=== PATIENT | female | born 1995 | race Hispanic/Latino ===

== ENCOUNTER 2018-11-09 08:02 | Emergency (ER) | payer OTHER, SELFPAY ==
[2018-11-09] MEDS ORDERED: KETOROLAC 30 MG/ML INJ ONE (08:30)
[2018-11-09] MEDS ORDERED: NA CHLORIDE 0.9% 1,000 ML ONE (08:31)
[2018-11-09 08:47] LABS: Absolute Monocytes 0.4 K/uL (0.1-1.3); Absolute Neutrophil 3.3 K/uL (1.8-8.0); Basophils % 0.5 % (0-1.3); Eosinophils % 3.1 % (0-4.4); Hematocrit 40.4 % (36.0-45.0); Lymphocytes % 20.6 % (15.3-44.8); MPV 8.3 fL (7.6-11.3); Monocytes % 8.3 % (3.3-12.3); RBC Red Blood Cell Count 4.47 M/uL (3.86-4.86)
[2018-11-09 08:59] LABS: Urine Blood 2+ (NEG); Urine Glucose NEGATIVE (NEG); Urine Protein NEGATIVE (NEG); Urine pH 5.5 (5.0-7.0)
[2018-11-09 09:01] LABS: ALT/SGPT 86 U/L (12-78); AST/SGOT 45 U/L (15-37); Albumin 3.8 g/dL (3.4-5.0); Alkaline Phosphatase 84 U/L (45-117); BUN Blood Urea Nitrogen 8 mg/dL (7-18); Bicarbonate 27 mmol/L (21-32); Bilirubin Direct 0.1 mg/dL (0-0.2); Bilirubin Total 0.4 mg/dL (0.2-1.0); Glucose Level 94 mg/dL (74-106); Lipase 125 U/L (73-393); Potassium 3.4 mmol/L (3.5-5.1); Protein, Total 8.1 g/dL (6.4-8.2); Sodium Level 140 mmol/L (136-145)
[2018-11-09 09:04] LABS: Urine Bacteria <20 /HPF (<20); Urine RBC <5 /HPF (NONE SEEN)
[2018-11-09 09:05] LABS: Urine Culture Reflex Order NOT NEEDED
--- NOTE | 2018-11-09 09:24 | RAD REPORT ---
EXAM DESCRIPTION: US - Transvaginal Study Probe - 11/09/2018 9:16 am CLINICAL HISTORY: right adnexal pain Pelvic pain. COMPARISON: TRANSVAGINAL STUDY PROBE dated 02/25/2012 FINDINGS: The uterus is normal in size, shape and echotexture. The uterus measures 8.7 x 4.1 x 3.6 c m. The endometrial stripe measures 10 mm, normal. Both ovaries are normal in size, shape and echotexture. The right ovary measures 2.0 x 1.9 x 1.7 cm. The left ovary measures 2.9 x 1.6 x 1.4 cm. No ovarian or parovarian lesions. No adnexal masses. Normal Doppler blood flow was demonstrated to both ovaries. No significant pelvic ascites. IMPRESSION: Unremarkable study.
[2018-11-09] MEDS ORDERED: ONDANSETRON 4 MG/2 ML VIAL ONE (09:53)
[2018-11-09] MEDS ORDERED: MORPHINE 4 MG/ML SYR ONE (09:53)
--- NOTE | 2018-11-09 11:41 | RAD REPORT ---
EXAM DESCRIPTION: CTAbdomen Pelvis W Contrast - 11/09/2018 11:34 am CLINICAL HISTORY: Abdominal pain. RLQ abdomen pain COMPARISON: Transvaginal Study Probe dated 11/09/2018; TRANSVAGINAL STUDY PROBE dated 02/25/2012 TECHNIQUE: Biphasic CT imaging of the abdomen and pelvis was performed with 100 ml non-ionic IV cont rast. All CT scans are performed using dose optimization technique as appropriate and may include automated exposure control or mA/KV adjustment according to patient size. FINDINGS: The lung bases are clear.Cholecystectomy clips. The liver, spleen, pancreas, adrenal glands and kidneys are within normal limits. No bowel obstruction, free air, free fluid or abscess. The appendix is normal. No evidence of signi ficant lymphadenopathy. No suspicious bony findings. IMPRESSION: No acute intra-abdominal or pelvic finding.
--- NOTE | 2018-11-09 12:02 | ER ---
Nurse's Notes [facility] Name: Mary Aaron Age: 23 yrs Sex: Female : 1995 Arrival Date: 11/09/2018 Time: 08:03 Bed 6 Private MD: Diagnosis: Lower abdominal pain, unspecified Presentation: 11/09 08:04 Transition of care: patient was not received from another setting of care. Risk ss Assessment: Do you want to hurt yourself or someone else? Patient reports no desire to harm self or others. Care prior to arrival: None. 08:04 Method Of Arrival: Ambulatory ss 08:04 Acuity: KAMALA 3 ss 08:11 Presenting complaint: Patient states: "I've had two ectopic pregnancies, so I've had ss both of my fallopian tubes removed, and for the past few months I've had very painful periods, and this morning this is really bad like when I had my last ectopic .". Onset of symptoms was November 09, 2018. Initial Sepsis Screen: Does the patient meet any 2 criteria? No. Patient's initial sepsis screen is negative. Does the patient have a suspected source of infection? No. Patient's initial sepsis screen is negative. 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 - Social history:: Smoking status: Patient/guardian denies using tobacco. - Ebola Screening: : Patient denies exposure to infectious person Patient denies travel to an Ebola-affected area in the 21 days before illness onset. Screenin:38 Abuse screen: Denies threats or abuse. Nutritional screening: No deficits noted. tw2 Tuberculosis screening: No symptoms or risk factors identified. Fall Risk None identified. Assessment: 08:35 General: Appears in no apparent distress. uncomfortable, Behavior is calm, cooperative, jl7 appropriate for age. Pain: Complains of pain in right lower quadrant Pain does not radiate. Pain currently is 8 out of 10 on a pain scale. Quality of pain is described as sharp, stabbing, throbbing, Pain began years ago. Is intermittent. Neuro: Level of Consciousness is awake, alert, obeys commands, Oriented to person, place, time, situation. Cardiovascular: Patient's skin is warm and dry. Respiratory: Airway is patent Respiratory effort is even, unlabored, Respiratory pattern is regular, symmetrical. GI: Bowel sounds present X 4 quads. Abd is soft and non tender X 4 quads. : No signs and/or symptoms were reported regarding the genitourinary system. EENT: No signs and/or symptoms were reported regarding the EENT system. Derm: Skin is pink, warm \\T\\ dry. Musculoskeletal: No signs and/or symptoms reported regarding the musculoskeletal system. 09:15 Reassessment: Pt reports "It feels a little better." Pain rated 7/10 at this time. jl7 09:40 Reassessment: Pt c/o nausea and pain rated 7/10, ERP notified, see MAR for orders. jl7 10:00 Reassessment: Patient appears in no apparent distress at this time. Patient and/or jl7 family updated on plan of care and expected duration. Pain level reassessed. Patient is alert, oriented x 3, equal unlabored respirations, skin warm/dry/pink. Patient states symptoms have improved. 11:30 Reassessment: Patient appears in no apparent distress at this time. Patient and/or jl7 family updated on plan of care and expected duration. Pain level reassessed. Patient is alert, oriented x 3, equal unlabored respirations, skin warm/dry/pink. Vital Signs: 08:03 Resp 15; Temp 97.8(TE); Weight 68.04 kg (R); Height 5 ft. 3 in. (160.02 cm); Pain 8/10; ss 08:11 BP 114 / 91; Pulse 85; Pulse Ox 99% on R/A; ss 09:11 BP 117 / 75; Pulse 65; Resp 17; Pulse Ox 100% on R/A; tw2 10:10 BP 93 / 62; Pulse 54; Resp 17; Pulse Ox 100% on R/A; tw2 11:10 BP 99 / 60; Pulse 60; Resp 17; Pulse Ox 100% on R/A; tw2 12:00 BP 101 / 62; Pulse 65; Resp 16 S; Pulse Ox 100% on R/A; jl7 08:03 Body Mass Index 26.57 (68.04 kg, 160.02 cm) ED Course: 08:03 Patient arrived in ED. ss 08:03 Arm band placed on left wrist. ss 08:04 Triage completed. ss 08:05 Axel Ramon, QIAN is Primary Nurse. jl7 08:06 Karlo Lambert PA is PHCP. cp 08:06 Eva Dowell MD is Attending Physician. cp 08:20 Patient has correct armband on for positive identification. Placed in gown. Bed in low jl7 position. Call light in reach. Side rails up X 1. personnel monitor on. Pulse ox on. NIBP on. 08:30 Initial lab(s) drawn, by me, sent to lab. Inserted saline lock: 20 gauge in left jl7 antecubital area, using aseptic technique. Blood collected. 09:21 Transvaginal Study Probe In Process Unspecified. EDMS 11:35 CT Abd/Pelvis - W/Contrast: give oral contrast In Process Unspecified. EDMS 12:01 Delfino Cortes MD is Referral Physician. cp 12:25 No provider procedures requiring assistance completed. IV discontinued, intact, jl7 bleeding controlled, No redness/swelling at site. Pressure dressing applied. Administered Medications: 08:30 Drug: NS 0.9% 1000 ml Route: IV; Rate: 1 bolus; Site: left antecubital; jl7 09:45 Follow up: IV Status: Completed infusion jl7 11:06 Follow up: Response: No adverse reaction; IV Status: Completed infusion; IV Intake: tw2 1000ml 08:31 Drug: TORadol 30 mg Route: IVP; Site: left antecubital; jl7 09:00 Follow up: Response: No adverse reaction; Pain is decreased jl7 09:46 Drug: Zofran 4 mg Route: IVP; Site: left antecubital; jl7 10:30 Follow up: Response: No adverse reaction; Nausea is decreased jl7 09:47 Drug: morphine 2 mg Route: IVP; Site: left antecubital; jl7 10:30 Follow up: Response: No adverse reaction; Pain is decreased jl7 12:05 Drug: traMADol 50 mg Route: PO; jl7 12:21 Follow up: Response: Medication administered at discharge. jl7 Intake: 11:06 IV: 1000ml; Total: 1000ml. tw2 Outcome: 12:01 Discharge ordered by . joey 12:23 Discharged to home ambulatory. jl7 12:23 Condition: stable 12:23 Discharge instructions given to patient, family, Instructed on discharge instructions, follow up and referral plans. medication usage, Demonstrated understanding of instructions, follow-up care, medications, Prescriptions given X 3. 12:26 Patient left the ED. jl7 Signatures: Dispatcher [employer] EDWV Marti Best RN RN Karlo Burk, LUX PA Bernie Valadez RN RN tw2 Axel Ramon RN RN jl7 Corrections: (The following items were deleted from the chart) 08:11 08:04 PMHx: None; [facility]
--- NOTE | 2018-11-09 12:03 | EDPHYS ---
Physician Documentation [facility] Name: Mary Aaron Age: 23 yrs Sex: Female : 1995 Arrival Date: 11/09/2018 Time: 08:03 Bed 6 Private MD: ED Physician Eva Dowell HPI: 11/09 08:20 This 23 yrs old Female presents to ER via Ambulatory with complaints of cp Abdominal Pain. 08:20 The patient presents with abdominal pain right lower quadrant. Onset: The cp symptoms/episode began/occurred suddenly, this morning. The symptoms do not radiate. 08:20 Associated signs and symptoms: Pertinent positives: vaginal bleeding, currently on cp menses, Pertinent negatives: blood in stools, chest pain, constipation, diarrhea, dysuria, fever. The symptoms are described as constant. 08:20 The patient has experienced similar episodes in the past, but today's symptoms are cp worse, more painful. 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 - Social history:: Smoking status: Patient/guardian denies using tobacco. - Ebola Screening: : Patient denies exposure to infectious person Patient denies travel to an Ebola-affected area in the 21 days before illness onset. ROS: 08:22 Eyes: Negative for injury, pain, redness, and discharge. cp 08:22 Constitutional: Negative for body aches, chills, fever, poor PO intake. 08:22 ENT: Negative for drainage from ear(s), ear pain, sore throat, difficulty swallowing, difficulty handling secretions. 08:22 Cardiovascular: Negative for chest pain, edema, palpitations. 08:22 Respiratory: Negative for cough, shortness of breath, wheezing. 08:22 Abdomen/GI: Positive for abdominal pain, of the right lower quadrant, Negative for vomiting, diarrhea, constipation, black/tarry stool, rectal bleeding. 08:22 Back: Negative for pain at rest, pain with movement, radiated pain. 08:22 : Positive for vaginal bleeding, Negative for urinary symptoms. 08:22 Skin: Negative for cellulitis, rash. 08:22 All other systems are negative. Exam: 08:30 Head/Face: Normocephalic, atraumatic. cp 08:30 Constitutional: The patient appears in no acute distress, alert, awake, non-toxic, well developed, well nourished. 08:30 Eyes: Periorbital structures: appear normal, Conjunctiva: normal, no exudate, no injection, Sclera: no appreciated abnormality, Lids and lashes: appear normal, bilaterally. 08:30 ENT: External ear(s): are unremarkable, Nose: is normal, Mouth: Lips: moist, Oral mucosa: pink and intact, moist, Posterior pharynx: is normal, airway is patent, no erythema, no exudate. 08:30 Chest/axilla: Inspection: normal, Palpation: is normal, no crepitus, no tenderness. 08:30 Cardiovascular: Rate: normal, Rhythm: regular. 08:30 Respiratory: the patient does not display signs of respiratory distress, Respirations: normal, no use of accessory muscles, no retractions, no splinting, no tachypnea, labored breathing, is not present, Breath sounds: are clear throughout, no decreased breath sounds, no stridor, no wheezing. 08:30 Abdomen/GI: Inspection: abdomen appears normal, Bowel sounds: active, all quadrants, Palpation: soft, in all quadrants, moderate abdominal tenderness, in the right lower quadrant, rebound tenderness, is not appreciated, voluntary guarding, is elicited in the right lower quadrant. 08:30 Back: pain, is absent, ROM is normal. 08:30 Skin: cellulitis, is not appreciated, no rash present. Vital Signs: 08:03 Resp 15; Temp 97.8(TE); Weight 68.04 kg (R); Height 5 ft. 3 in. (160.02 cm); Pain 8/10; ss 08:11 BP 114 / 91; Pulse 85; Pulse Ox 99% on R/A; ss 09:11 BP 117 / 75; Pulse 65; Resp 17; Pulse Ox 100% on R/A; tw2 10:10 BP 93 / 62; Pulse 54; Resp 17; Pulse Ox 100% on R/A; tw2 11:10 BP 99 / 60; Pulse 60; Resp 17; Pulse Ox 100% on R/A; tw2 12:00 BP 101 / 62; Pulse 65; Resp 16 S; Pulse Ox 100% on R/A; jl7 08:03 Body Mass Index 26.57 (68.04 kg, 160.02 cm) ss MDM: 08:06 Patient medically screened. cp 09:00 Differential diagnosis: appendicitis, Ectopic , Endometriosis, Ovarian cp Torsion, Peritonitis, Pelvic Inflammatory Disease, Pyelonephritis, Ureterolithiasis, urinary tract infection. 12:00 Data reviewed: vital signs, nurses notes, lab test result(s), radiologic studies, CT cp scan, ultrasound. 12:00 Special discussion: Based on the patient's Hx, exam, and Dx evaluation, there is no cp indication for emergent surgery or inpatient Tx. It is understood by the patient/guardian that if the Sx's persist or worsen they need to return immediately for re-evaluation. 12:00 Counseling: I had a detailed discussion with the patient and/or guardian regarding: the cp historical points, exam findings, and any diagnostic results supporting the discharge/admit diagnosis, lab results, radiology results, the need for outpatient follow up, an OB/Gyne specialist, to return to the emergency department if symptoms worsen or persist or if there are any questions or concerns that arise at home. 12:00 Response to treatment: the patient's symptoms have markedly improved after treatment, cp and as a result, I will discharge patient. 11/09 08:19 Order name: Basic Metabolic Panel; Complete Time: 09:15 cp 11/09 11:56 Interpretation: Normal except: K 3.4. cp 11/09 08:19 Order name: CBC with Diff; Complete Time: 08:57 cp 11/09 08:57 Interpretation: Within normal limits. cp 11/09 08:19 Order name: Creatinine for Radiology; Complete Time: 09:15 cp 11/09 08:19 Order name: Hepatic Function; Complete Time: 09:15 cp 11/09 08:19 Order name: Lipase; Complete Time: 09:15 cp 11/09 08:19 Order name: Urine Microscopic Only; Complete Time: 09:15 cp 11/09 08:23 Order name: Urine Dipstick--Ancillary (enter results); Complete Time: 09:15 bd 11/09 08:23 Order name: Urine --Ancillary (enter results); Complete Time: 09:15 bd 11/09 09:21 Order name: Transvaginal Study Probe; Complete Time: 11:49 EDMS 11/09 11:50 Interpretation: Report reviewed. 11/09 09:29 Order name: CT Abd/Pelvis - W/Contrast: give oral contrast; Complete Time: 11:49 cp 11/09 08:19 Order name: IV Saline Lock; Complete Time: 08:30 cp 11/09 08:19 Order name: Labs collected and sent; Complete Time: 08:30 cp 11/09 08:19 Order name: Urine Dipstick-Ancillary (obtain specimen); Complete Time: 08:30 cp 11/09 08:19 Order name: Urine Test (obtain specimen); Complete Time: 08:30 cp Administered Medications: 08:30 Drug: NS 0.9% 1000 ml Route: IV; Rate: 1 bolus; Site: left antecubital; jl7 09:45 Follow up: IV Status: Completed infusion jl7 11:06 Follow up: Response: No adverse reaction; IV Status: Completed infusion; IV Intake: tw2 1000ml 08:31 Drug: TORadol 30 mg Route: IVP; Site: left antecubital; jl7 09:00 Follow up: Response: No adverse reaction; Pain is decreased jl7 09:46 Drug: Zofran 4 mg Route: IVP; Site: left antecubital; jl7 10:30 Follow up: Response: No adverse reaction; Nausea is decreased jl7 09:47 Drug: morphine 2 mg Route: IVP; Site: left antecubital; jl7 10:30 Follow up: Response: No adverse reaction; Pain is decreased jl7 12:05 Drug: traMADol 50 mg Route: PO; jl7 12:21 Follow up: Response: Medication administered at discharge. jl7 Disposition: 18:26 Co-signature as Attending Physician, Eva Dowell MD. ma2 Disposition: 11/09/18 12:01 Discharged to Home. Impression: Lower abdominal pain, unspecified. - Condition is Stable. - Discharge Instructions: Abdominal Pain, Adult. - Prescriptions for Naprosyn 500 mg Oral Tablet - take 1 tablet by ORAL route 2 times per day take with food; 20 tablet. Zofran 4 mg Oral Tablet - take 1 tablet by ORAL route every 12 hours As needed; 20 tablet. Tramadol 50 mg Oral Tablet - take 1 tablet by ORAL route every 8 hours as needed; 15 tablet. - Family Work Release, Medication Reconciliation Form, Thank You Letter, Antibiotic Education, Prescription Opioid Use form. - Follow up: Delfino Cortes MD; When: 1 - 2 days; Reason: Recheck today's complaints. - Problem is new. - Symptoms have improved. Signatures: Dispatcher [employer] EDCA Marti Best RN RN ss Karlo Lambert PA PA cp Axel Ramon RN RN jl7 Eva Dowell MD MD ma2 Bernie Santoro RN tw2 Corrections: (The following items were deleted from the chart) 08:11 08:04 PMHx: None; [facility] 09:20 08:20 Pelvis Complete+US.RAD.BRZ ordered. [facility] 12:26 12:01 11/09/2018 12:01 Discharged to Home. Impression: Lower abdominal pain, jl7 unspecified. Condition is Stable. Forms are Medication Reconciliation Form, Thank You Letter, Antibiotic Education, Prescription Opioid Use. Follow up: Delfino Cortes; When: 1 - 2 days; Reason: Recheck today's complaints. Problem is new. Symptoms have improved. cp
[2018-11-09] MEDS ORDERED: TRAMADOL HCL 50 MG TAB ONE (12:09)
[2018-11-09 12:37] VITALS: TEMP 97.8
[2018-11-09 12:40] VITALS: O2SAT 100
[2018-11-09 12:42] VITALS: BP 99/60
== END 2018-11-09 12:26 | disposition home or self-care (01) ==
LOC: ER 08:02
DX: R10.31 Right lower quadrant pain (principal)
CPT/HCPCS: 36415; 74177; 76830; 80048; 80076; 81003; 81015; 81025; 83690; 85025; 96361; 96374; 96375; 99284; J2405; J7030; Q9967

== ENCOUNTER 2019-02-21 10:23 | Emergency (ER) | payer SELFPAY ==
--- NOTE | 2019-02-21 12:23 | ER ---
Nurse's Notes [facility] Name: Mary Aaron Age: 23 yrs Sex: Female : 1995 Arrival Date: 02/21/2019 Time: 10:24 Bed 16 Private MD: Diagnosis: Pain in right hand Presentation: 02/21 10:52 Presenting complaint: Patient states: left 2nd digit sharp shooting pain and swelling sv started 3-4 days ago after walking her dog and the leash pulled. Transition of care: patient was not received from another setting of care. Onset of symptoms was February 17, 2019. Initial Sepsis Screen: Does the patient meet any 2 criteria? No. Patient's initial sepsis screen is negative. Does the patient have a suspected source of infection? No. Patient's initial sepsis screen is negative. Care prior to arrival: None. 10:52 Method Of Arrival: Ambulatory sv 10:52 Acuity: KAMALA 3 sv 11:49 Risk Assessment: Do you want to hurt yourself or someone else? Patient reports no ph desire to harm self or others. 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 - Social history:: Smoking status: Patient/guardian denies using tobacco. - Ebola Screening: : No symptoms or risks identified at this time. Screenin:48 Abuse screen: Denies threats or abuse. Denies injuries from another. Nutritional ph screening: No deficits noted. Tuberculosis screening: No symptoms or risk factors identified. Fall Risk None identified. Assessment: 11:47 General: Appears in no apparent distress. comfortable, well groomed, Behavior is calm, ph cooperative, appropriate for age. Pain: Complains of pain in right hand Pain radiates to dorsal aspect of right forearm. Neuro: Level of Consciousness is awake, alert, obeys commands, Oriented to person, place, time, situation. Cardiovascular: Capillary refill < 3 seconds in bilateral fingers Patient's skin is warm and dry. Respiratory: Airway is patent Respiratory effort is even, unlabored. Derm: Skin is intact, is healthy with good turgor, Skin is pink, warm \\T\\ dry. Vital Signs: 10:53 BP 129 / 85; Pulse 79; Resp 16; Temp 97.9; Pulse Ox 100% ; Weight 77.11 kg; Height 5 sv ft. 4 in. (162.56 cm); Pain 2/10; 11:55 BP 116 / 84; Pulse 80; Resp 16; Temp 98.0(O); Pulse Ox 100% ; mh5 13:01 BP 118 / 78; Pulse 76; Resp 18; Temp 97.4; Pulse Ox 99% ; ph 10:53 Body Mass Index 29.18 (77.11 kg, 162.56 cm) sv ED Course: 10:24 Patient arrived in ED. as 10:53 Triage completed. sv 10:54 Arm band placed on Patient placed in waiting room, Patient notified of wait time. sv 11:07 Little Alvarze FNP-C is PHCP. kb 11:07 Hardy Iyer MD is Attending Physician. kb 11:19 Emi Lau, RN is Primary Nurse. ph 11:49 Patient has correct armband on for positive identification. Bed in low position. Door ph closed. Noise minimized. 11:58 X-ray completed. Portable x-ray completed in exam room. Patient tolerated procedure mh1 well. 12:00 Hand Right 2 View XRAY In Process Unspecified. EDMS 13:00 No provider procedures requiring assistance completed. Patient did not have IV access ph during this emergency room visit. Administered Medications: No medications were administered Outcome: 12:23 Discharge ordered by . kb 13:00 Discharged to home ambulatory, with significant other. ph 13:00 Condition: good 13:00 Discharge instructions given to patient, Instructed on discharge instructions, follow up and referral plans. Demonstrated understanding of instructions, follow-up care. 13:01 Patient left the ED. ph Signatures: Dispatcher [employer] EDMS Little Alvarez FNP-C FNP-Ckb Verde, Stephanie, RN RN Liza Sher 1 Merline Tilley Patricia, RN RN Sasha Tilley [facility]
--- NOTE | 2019-02-21 12:23 | EDPHYS ---
Physician Documentation [facility] Name: Mary Aaron Age: 23 yrs Sex: Female : 1995 Arrival Date: 02/21/2019 Time: 10:24 Bed 16 Private MD: ED Physician Hardy Iyer HPI: 02/21 11:38 This 23 yrs old Female presents to ER via Ambulatory with complaints of Hand kb Pain. 11:38 The patient or guardian reports injury, pain, swelling. The complaints affect the kb dorsum of right hand. Context: The problem was sustained outdoors, resulted from leash pulled by dog. Onset: The symptoms/episode began/occurred 3 day(s) ago. Modifying factors: The symptoms are alleviated by nothing, the symptoms are aggravated by nothing. Associated signs and symptoms: The patient has no apparent associated signs or symptoms. Severity of symptoms: At their worst the symptoms were moderate, in the emergency department the symptoms are unchanged. 11:41 The patient has not experienced similar symptoms in the past. The patient has not kb recently seen a physician. 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 - Social history:: Smoking status: Patient/guardian denies using tobacco. - Ebola Screening: : No symptoms or risks identified at this time. ROS: 11:41 Constitutional: Negative for fever, chills, and weight loss, Cardiovascular: Negative kb for chest pain, palpitations, and edema, Respiratory: Negative for shortness of breath, cough, wheezing, and pleuritic chest pain, Abdomen/GI: Negative for abdominal pain, nausea, vomiting, diarrhea, and constipation, : Negative for injury, bleeding, discharge, and swelling, Skin: Negative for injury, rash, and discoloration, Neuro: Negative for headache, weakness, numbness, tingling, and seizure. 11:41 MS/extremity: Positive for pain, swelling, of the dorsum of right hand. Exam: 11:42 Constitutional: This is a well developed, well nourished patient who is awake, alert, kb and in no acute distress. Head/Face: Normocephalic, atraumatic. Chest/axilla: Normal chest wall appearance and motion. Nontender with no deformity. No lesions are appreciated. Cardiovascular: Regular rate and rhythm with a normal S1 and S2. No gallops, murmurs, or rubs. Normal PMI, no JVD. No pulse deficits. Respiratory: Lungs have equal breath sounds bilaterally, clear to auscultation and percussion. No rales, rhonchi or wheezes noted. No increased work of breathing, no retractions or nasal flaring. Abdomen/GI: Soft, non-tender, with normal bowel sounds. No distension or tympany. No guarding or rebound. No evidence of tenderness throughout. Skin: Warm, dry with normal turgor. Normal color with no rashes, no lesions, and no evidence of cellulitis. Neuro: Awake and alert, GCS 15, oriented to person, place, time, and situation. Cranial nerves II-XII grossly intact. Motor strength 5/5 in all extremities. Sensory grossly intact. Cerebellar exam normal. Normal gait. 11:42 Musculoskeletal/extremity: Extremities: grossly normal except: noted in the dorsum of right hand: pain, swelling, ROM: intact in all extremities, Circulation is intact in all extremities. Sensation intact. Vital Signs: 10:53 BP 129 / 85; Pulse 79; Resp 16; Temp 97.9; Pulse Ox 100% ; Weight 77.11 kg; Height 5 sv ft. 4 in. (162.56 cm); Pain 2/10; 11:55 BP 116 / 84; Pulse 80; Resp 16; Temp 98.0(O); Pulse Ox 100% ; mh5 13:01 BP 118 / 78; Pulse 76; Resp 18; Temp 97.4; Pulse Ox 99% ; ph 10:53 Body Mass Index 29.18 (77.11 kg, 162.56 cm) sv MDM: 11:07 Patient medically screened. kb 11:42 Data reviewed: vital signs, nurses notes. Data interpreted: Pulse oximetry: on room air kb is 100 %. Interpretation: normal. 12:21 Counseling: I had a detailed discussion with the patient and/or guardian regarding: the kb historical points, exam findings, and any diagnostic results supporting the discharge/admit diagnosis, radiology results, the need for outpatient follow up, a family practitioner, to return to the emergency department if symptoms worsen or persist or if there are any questions or concerns that arise at home. 12:22 Test interpretation: by ED physician or midlevel provider: plain radiologic studies, kb negative for acute finding. 02/21 11:11 Order name: Hand Right 2 View XRAY; Complete Time: 12:44 kb Administered Medications: No medications were administered Disposition: 02/21/19 12:23 Discharged to Home. Impression: Pain in right hand. - Condition is Stable. - Discharge Instructions: Hand Pain. - Family Work Release, Medication Reconciliation Form, Thank You Letter, Antibiotic Education, Prescription Opioid Use form. - Follow up: Emergency Department; When: As needed; Reason: Worsening of condition. Follow up: Private Physician; When: 2 - 3 days; Reason: Recheck today's complaints, Continuance of care, Re-evaluation by your physician. Addendum: 02/23/2019 07:04 Co-signature as Attending Physician, Hardy Iyer MD. r n Signatures: Dispatcher [employer] EDLittle Mcnair, REYNALDO-C FRONT END DRIVER-Leonor Buckley RN RN Hardy Garcia MD MD rn LauEmi RN RN ph Corrections: (The following items were deleted from the chart) 02/21 13:01 12:23 02/21/2019 12:23 Discharged to Home. Impression: Pain in right hand. Condition is ph Stable. Forms are Medication Reconciliation Form, Thank You Letter, Antibiotic Education, Prescription Opioid Use. Follow up: Emergency Department; When: As needed; Reason: Worsening of condition. Follow up: Private Physician; When: 2 - 3 days; Reason: Recheck today's complaints, Continuance of care, Re-evaluation by your physician. kb
--- NOTE | 2019-02-21 12:31 | RAD REPORT ---
EXAM DESCRIPTION: RAD - Hand Right 2 View - 02/21/2019 11:59 am CLINICAL HISTORY: PAIN COMPARISON: No comparisons FINDINGS: No fracture or dislocation is seen. Multiple surgical clips are seen along the dorsum of t he hand.
[2019-02-21 16:33] VITALS: BP 118/78; TEMP 97.4; O2SAT 99
== END 2019-02-21 13:01 | disposition home or self-care (01) ==
LOC: ER 10:23
DX: M79.641 Pain in right hand (principal)
CPT/HCPCS: 99283

== ENCOUNTER 2019-12-17 21:04 | Emergency (ER) | payer SELFPAY ==
--- OUTSIDE RECORDS SUMMARY | 2019-12-17 21:07 | XMS REPORT ---
:1995 [facility] Address [address] [place] [address] Dr. Willis [address] [place] [address] Care Team Providers Name Role Phone Unavailable Unavailable Unavailable Problems This patient has no known problems. Allergies, Adverse Reactions, Alerts This patient has no known allergies or adverse reactions. Medications This patient has no known medications.
--- OUTSIDE RECORDS SUMMARY | 2019-12-17 21:07 | XMS REPORT | Summary of Care ---
:1995 Author Organization [facility] Address [address] [place] [id number] Care Team Providers Name Role Phone Pcp, Patient Does Not Have A Primary Care Provider Encounter Details Date Type Department Care Team Description 04/19/2019 Patient Secure Msg [facility] Messages Doctor Unassigned, [address] [place] [address] [place] [address] [place] [address] [place] [address] Allergies No Known Allergiesdocumented as of this encounter (statuses as of 05/21/2019) Medications No known medicationsdocumented as of this encounter (statuses as of 05/21/2019) Active Problems Problem Noted Date Well woman exam 04/18/2019 Need for HPV vaccination 04/18/2019 Obesity (BMI 30-39.9) 04/18/2019 Pain pelvic 04/18/2019 documented as of this encounter (statuses as of 05/21/2019) Immunizations Name Administration Dates Next Due HPV9 04/18/2019 documented as of this encounter Social History Tobacco Use Types Packs/Day Years Used Date Never Smoker Smokeless Tobacco: Never Used Alcohol Use Drinks/Week oz/Week Comments Not Currently Sex Assigned at Date Recorded Not on file Job Start Date Occupation Industry Not on file Not on file Not on file Travel History Travel Start Travel End No recent travel history available. documented as of this encounter Last Filed Vital Signs Not on filedocumented in this encounter Plan of Treatment Date Type Specialty Care Team Description 06/20/2019 Nurse Visit OB Satellites Visit, [facility] Nurse Health Maintenance Due Date Last Done Comments VARICELLA VACCINES (1 of 2 - 13+ 2007 2-dose series) DTaP,Tdap,and Td Vaccines (1 - 2013 Tdap) HPV VACCINES (2 - Female 3-dose 05/16/2019 04/18/2019 series) INFLUENZA VACCINE 06/12/2019 CHLAMYDIA SCREENING 04/18/2020 04/18/2019 PAP SMEAR 04/18/2022 04/18/2019 PNEUMOCOCCAL 0-64 YEARS COMBINED Aged Out No longer eligible based on SERIES patient's age to complete this topic documented as of this encounter Results Not on filedocumented in this encounter Insurance Payer Benefit Plan Subscriber ID Effective Phone Address Type / Group Dates [facility] xxxxxxxxx 2019-Peter [phone] Medicaid WOMEN nt [address] [place] [address] documented as of this encounter
--- NOTE | 2019-12-17 22:19 | ER ---
Nurse's Notes [facility] Name: Mary Aaron Age: 24 yrs Sex: Female : 1995 Arrival Date: 12/17/2019 Time: 21:09 Bed 13 Private MD: Diagnosis: Chronic nasopharyngitis;Gastro-esophageal reflux disease Presentation: 12/16 21:11 Chief complaint: Patient states: Sick last month with nasal congestion. Has had sore ll1 throat for 3 weeks. Bilateral ear pain today. No fever this week. Coronavirus screen: The patient has NOT traveled to a country currently being monitored by the [facility] within the last 14 days. Ebola Screen: Patient denies travel to an Ebola-affected area in the 21 days before illness onset. Initial Sepsis Screen: Does the patient meet any 2 criteria? No. Patient's initial sepsis screen is negative. Does the patient have a suspected source of infection? No. Patient's initial sepsis screen is negative. Risk Assessment: Do you want to hurt yourself or someone else? Patient reports no desire to harm self or others. 21:11 Method Of Arrival: Ambulatory 1 21:11 Acuity: KAMALA 4 ll1 21:32 Onset of symptoms is unknown. 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 - Social history:: Patient/guardian denies using alcohol, street drugs, tobacco products, Smoking status: Patient/guardian denies using. Screenin:32 Abuse screen: Denies threats or abuse. Denies injuries from another. Nutritional screening: No deficits noted. Tuberculosis screening: No symptoms or risk factors identified. Fall Risk None identified. Assessment: 21:31 General: Appears in no apparent distress. Behavior is calm, cooperative, appropriate for age. Pain: Complains of pain in ear pain and sore throat. Neuro: Level of Consciousness is awake, alert, obeys commands, Oriented to person, place, time, situation, Appropriate for age. Cardiovascular: Heart tones S1 S2. Respiratory: Airway is patent Respiratory effort is even, unlabored, Respiratory pattern is regular, symmetrical, Breath sounds are clear bilaterally. GI: Abdomen is flat, non-distended. : No signs and/or symptoms were reported regarding the genitourinary system. EENT: Throat is pink. Derm: Skin is intact, is healthy with good turgor, Skin is pink, warm \\T\\ dry. normal. Musculoskeletal: Circulation, motion, and sensation intact. 22:40 Reassessment: Patient appears in no apparent distress at this time. No changes from previously documented assessment. Patient and/or family updated on plan of care and expected duration. Pain level reassessed. Patient is alert, oriented x 3, equal unlabored respirations, skin warm/dry/pink. Vital Signs: 21:11 BP 124 / 94; Pulse 84; Resp 18; Temp 97.4; Pulse Ox 100% ; Weight 77.11 kg; Height 5 ll1 ft. 4 in. (162.56 cm); Pain 6/10; 21:33 BP 116 / 84; Pulse 89; Resp 18; Pulse Ox 100% on R/A; wh 22:41 BP 121 / 90; Pulse 91; Resp 18; Pulse Ox 100% ; wh 21:11 Body Mass Index 29.18 (77.11 kg, 162.56 cm) ll1 ED Course: 21:09 Patient arrived in ED. es 21:14 Triage completed. ll1 21:15 Arm band placed on Patient placed in an exam room. ll1 21:18 Shadia Leo is Primary Nurse. 21:33 Patient has correct armband on for positive identification. Bed in low position. Call light in reach. Side rails up X 1. Pulse ox on. NIBP on. 21:34 Eva Dowell MD is Attending Physician. ma2 21:34 Nicky Isabel [facility]C [facility]. snw 22:42 No provider procedures requiring assistance completed. Patient did not have IV access during this emergency room visit. Administered Medications: 22:38 Drug: Decadron 8 mg Route: PO; 22:44 Follow up: Response: No adverse reaction 22:38 Drug: Pepcid 20 mg Route: PO; 22:44 Follow up: Response: No adverse reaction Outcome: 22:19 Discharge ordered by . snw 22:42 Discharged to home ambulatory. 22:42 Condition: stable 22:42 Discharge instructions given to patient, Instructed on discharge instructions, follow up and referral plans. medication usage, POC Demonstrated understanding of instructions, follow-up care, medications, POC Prescriptions given X 2. 22:43 Patient left the ED. Signatures: Nicky Isabel, BARGE PILOT-C BARGE PILOT-Csnw Catherine Barney Winsy Eva Dowell MD MD ma2 Merlene Redd RN RN ll1
--- NOTE | 2019-12-17 22:20 | EDPHYS ---
Physician Documentation [facility] Name: Mary Aaron Age: 24 yrs Sex: Female : 1995 Arrival Date: 12/17/2019 Time: 21:09 Bed 13 Private MD: ED Physician Eva Dowell HPI: 12/16 22:02 This 24 yrs old Female presents to ER via Ambulatory with complaints of snw Swollen Glands, Ear Pain. 22:02 Onset: The symptoms/episode began/occurred gradually, 3 week(s) ago, and became snw persistent. Associated signs and symptoms: The patient has no apparent associated signs or symptoms. The patient has experienced a previous episode. The patient has not recently seen a physician. denies fever. 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 - Social history:: Patient/guardian denies using alcohol, street drugs, tobacco products, Smoking status: Patient/guardian denies using. ROS: 22:01 Constitutional: Negative for fever, chills, and weight loss, Eyes: Negative for injury, snw pain, redness, and discharge, Neck: Negative for injury, pain, and swelling, Cardiovascular: Negative for chest pain, palpitations, and edema, Respiratory: Negative for shortness of breath, cough, wheezing, and pleuritic chest pain, Abdomen/GI: Negative for abdominal pain, nausea, vomiting, diarrhea, and constipation, Back: Negative for injury and pain, : Negative for injury, bleeding, discharge, and swelling, MS/Extremity: Negative for injury and deformity, Skin: Negative for injury, rash, and discoloration, Neuro: Negative for headache, weakness, numbness, tingling, and seizure. 22:01 ENT: Positive for ear pain, sore throat. Exam: 22:01 Constitutional: This is a well developed, well nourished patient who is awake, alert, snw and in no acute distress. Head/Face: Normocephalic, atraumatic. Eyes: Pupils equal round and reactive to light, extra-ocular motions intact. Lids and lashes normal. Conjunctiva and sclera are non-icteric and not injected. Cornea within normal limits. Periorbital areas with no swelling, redness, or edema. Neck: Trachea midline, no thyromegaly or masses palpated, and no cervical lymphadenopathy. Supple, full range of motion without nuchal rigidity, or vertebral point tenderness. No Meningismus. Chest/axilla: Normal chest wall appearance and motion. Nontender with no deformity. No lesions are appreciated. Cardiovascular: Regular rate and rhythm with a normal S1 and S2. No gallops, murmurs, or rubs. Normal PMI, no JVD. No pulse deficits. Respiratory: Lungs have equal breath sounds bilaterally, clear to auscultation and percussion. No rales, rhonchi or wheezes noted. No increased work of breathing, no retractions or nasal flaring. Abdomen/GI: Soft, non-tender, with normal bowel sounds. No distension or tympany. No guarding or rebound. No evidence of tenderness throughout. Back: No spinal tenderness. No costovertebral tenderness. Full range of motion. Skin: Warm, dry with normal turgor. Normal color with no rashes, no lesions, and no evidence of cellulitis. MS/ Extremity: Pulses equal, no cyanosis. Neurovascular intact. Full, normal range of motion. Neuro: Awake and alert, GCS 15, oriented to person, place, time, and situation. Cranial nerves II-XII grossly intact. Motor strength 5/5 in all extremities. Sensory grossly intact. Cerebellar exam normal. Normal gait. Psych: Awake, alert, with orientation to person, place and time. Behavior, mood, and affect are within normal limits. 22:01 ENT: External ear(s): are unremarkable, TM's: are normal, Nose: is normal, Mouth: is normal, Voice: is hoarse. Vital Signs: 21:11 BP 124 / 94; Pulse 84; Resp 18; Temp 97.4; Pulse Ox 100% ; Weight 77.11 kg; Height 5 ll1 ft. 4 in. (162.56 cm); Pain 6/10; 21:33 BP 116 / 84; Pulse 89; Resp 18; Pulse Ox 100% on R/A; wh 22:41 BP 121 / 90; Pulse 91; Resp 18; Pulse Ox 100% ; wh 21:11 Body Mass Index 29.18 (77.11 kg, 162.56 cm) ll1 MDM: 21:34 Patient medically screened. ma2 22:21 Data reviewed: vital signs, nurses notes. Data interpreted: Pulse oximetry: on room air snw is 100 %. Interpretation: normal. Counseling: I had a detailed discussion with the patient and/or guardian regarding: the historical points, exam findings, and any diagnostic results supporting the discharge/admit diagnosis, the presence of at least one elevated blood pressure reading (>120/80) during this emergency department visit, lab results, the need for outpatient follow up, to return to the emergency department if symptoms worsen or persist or if there are any questions or concerns that arise at home. Special discussion: I have referred the patient to see his PCP for further evaluation of high blood pressure. Based on the history and exam findings, there is no indication for further emergent testing or inpatient evaluation. I discussed with the patient/guardian the need to see the primary care provider for further evaluation of the symptoms. 12/16 21:28 Order name: Strep; Complete Time: 22:18 12/16 21:28 Order name: Flu; Complete Time: 22:18 12/16 22:14 Order name: Throat Culture EDMS Administered Medications: 22:38 Drug: Decadron 8 mg Route: PO; 22:44 Follow up: Response: No adverse reaction 22:38 Drug: Pepcid 20 mg Route: PO; 22:44 Follow up: Response: No adverse reaction Disposition: 12/17/19 22:19 Discharged to Home. Impression: Chronic nasopharyngitis, Gastro-esophageal reflux disease. - Condition is Stable. - Discharge Instructions: Gastroesophageal Reflux Disease, Adult, Pharyngitis, Diet and Dental Disease. - Prescriptions for Pepcid 20 mg Oral Tablet - take 1 tablet by ORAL route every 12 hours for 10 days; 20 tablet. Zyrtec 10 mg Oral Tablet - take 1 tablet by ORAL route once daily As needed; 20 tablet. - Medication Reconciliation Form, Thank You Letter, Antibiotic Education, Prescription Opioid Use form. - Follow up: Emergency Department; When: As needed; Reason: Worsening of condition. Addendum: 12/19/2019 01:31 Co-signature as Attending Physician, Eva Dowell MD. m a2 Signatures: Dispatcher [employer] EDMS Nicky Isabel, REYNALDO-C STEAM SHOVEL OPERATING ENGINEER-Csnarlene Leo Eva Steen MD MD ma2 Merlene Redd RN RN ll1 Corrections: (The following items were deleted from the chart) 12/16 22:43 22:19 12/17/2019 22:19 Discharged to Home. Impression: Chronic nasopharyngitis; wh Gastro-esophageal reflux disease. Condition is Stable. Forms are Medication Reconciliation Form, Thank You Letter, Antibiotic Education, Prescription Opioid Use. Follow up: Emergency Department; When: As needed; Reason: Worsening of condition. snw
[2019-12-17] MEDS ORDERED: dexAMETHasone 4 MG TAB ONE (22:40)
[2019-12-17] MEDS ORDERED: FAMOTIDINE 20 MG TAB ONE (22:40)
[2019-12-17 23:13] VITALS: TEMP 97.4; O2SAT 100
[2019-12-17 23:15] VITALS: BP 121/90
== END 2019-12-17 22:43 | disposition home or self-care (01) ==
LOC: ER 21:04
DX: J31.1 Chronic nasopharyngitis (principal); K21.9 Gastro-esophageal reflux disease without esophagitis
CPT/HCPCS: 87070; 87081; 87804; 99283; J8540

== ENCOUNTER 2019-12-20 01:23 | Emergency (ER) | payer SELFPAY ==
--- OUTSIDE RECORDS SUMMARY | 2019-12-20 01:25 | XMS REPORT ---
:1995 [facility] Address [address] [place] [address] Dr. Willis [address] [place] [address] Care Team Providers Name Role Phone Unavailable Unavailable Unavailable Problems This patient has no known problems. Allergies, Adverse Reactions, Alerts This patient has no known allergies or adverse reactions. Medications This patient has no known medications.
[2019-12-20] MEDS ORDERED: KETOROLAC 30 MG/ML INJ ONE (01:53)
[2019-12-20] MEDS ORDERED: METHYLPREDNISOLONE 125 MG INJ ONE (01:53)
--- NOTE | 2019-12-20 02:22 | ER ---
Nurse's Notes [facility] Name: Mary Aaron Age: 24 yrs Sex: Female : 1995 Arrival Date: 12/20/2019 Time: 01:25 Bed 19 Private MD: Diagnosis: Acute pharyngitis, unspecified Presentation: 12/19 01:35 Chief complaint: Patient states: Was here two days ago with sore throat and ear pain ao and was given steroids and DC home. Patient was diagnosed with acid reflux. Today patient states that she is unable to swallow, and her neck is getting swelling with ear pain. Patient stated that she is getting worst since last time was here. Coronavirus screen: The patient has NOT traveled to a country currently being monitored by the [facility] within the last 14 days. Proceed with normal triage procedures. The patient has NOT had contact with any known and/or suspected case of coronavirus. Proceed with normal triage procedures. Ebola Screen: Patient negative for fever greater than or equal to 101.5 degrees Fahrenheit, and additional compatible Ebola Virus Disease symptoms Patient denies exposure to infectious person. Patient denies travel to an Ebola-affected area in the 21 days before illness onset. Initial Sepsis Screen: Does the patient meet any 2 criteria? No. Patient's initial sepsis screen is negative. Does the patient have a suspected source of infection? No. Patient's initial sepsis screen is negative. Risk Assessment: Do you want to hurt yourself or someone else? Patient reports no desire to harm self or others. 01:35 Method Of Arrival: Ambulatory ao 01:35 Acuity: KAMALA 3 ao 01:44 Onset of symptoms is unknown. 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 - Social history:: Smoking status: Patient denies any tobacco usage or history of. Patient/guardian denies using alcohol, street drugs, IV drugs. Screenin:41 Abuse screen: Denies threats or abuse. Denies injuries from another. Nutritional ao screening: No deficits noted. Tuberculosis screening: No symptoms or risk factors identified. Fall Risk None identified. Assessment: 01:41 General: Appears in no apparent distress. comfortable, Behavior is calm, cooperative, ao appropriate for age. Pain: Complains of pain in Throat. Neuro: Level of Consciousness is awake, alert, obeys commands, Oriented to person, place, time, situation, Appropriate for age Moves all extremities. Full function Speech is normal, Facial symmetry appears normal. Cardiovascular: Capillary refill < 3 seconds Patient's skin is warm and dry. Respiratory: Airway is patent is compromised Respiratory effort is even, unlabored, Breath sounds are clear bilaterally. GI: Abdomen is obese, Bowel sounds present X 4 quads. : No signs and/or symptoms were reported regarding the genitourinary system. EENT: Throat is reddened. Derm: Skin is intact, Skin is pink, warm \T\ dry. normal, Skin temperature is warm. Musculoskeletal: No signs and/or symptoms reported regarding the musculoskeletal system. Vital Signs: 01:35 BP 133 / 92; Pulse 95; Resp 18; Temp 98.4(O); Pulse Ox 96% on R/A; Weight 83.91 kg; ao Height 5 ft. 3 in. (160.02 cm) (R); Pain 0/10; 01:35 Body Mass Index 32.77 (83.91 kg, 160.02 cm) ao ED Course: 01:25 Patient arrived in ED. es 01:35 Delano Barroso, RN is Primary Nurse. ao 01:37 Everett Wills MD is Attending Physician. tw4 01:39 Triage completed. ao 01:41 Arm band placed on right wrist. ao 01:44 Patient has correct armband on for positive identification. Pulse ox on. NIBP on. ao 02:39 No provider procedures requiring assistance completed. Patient did not have IV access ao during this emergency room visit. Administered Medications: 01:54 Drug: SOLU-Medrol 125 mg Route: IM; Site: right gluteus; ao 02:40 Follow up: Response: No adverse reaction ao 01:55 Drug: TORadol 30 mg Route: IM; Site: right gluteus; ao 02:40 Follow up: Response: No adverse reaction ao Outcome: 02:21 Discharge ordered by . tw4 02:39 Discharged to home ambulatory. ao 02:39 Condition: stable 02:39 Discharge instructions given to patient, Instructed on discharge instructions, follow up and referral plans. Demonstrated understanding of instructions, follow-up care, medications, Prescriptions given X 3. 02:40 Patient left the ED. ao Signatures: Catherine Barney Alex RN RN Everett Miles MD MD tw4
[2019-12-20 02:46] VITALS: BP 133/92; TEMP 98.4; O2SAT 96
--- NOTE | 2019-12-21 02:41 | EDPHYS ---
Physician Documentation [facility] Name: Mary Aaron Age: 24 yrs Sex: Female : 1995 Arrival Date: 12/20/2019 Time: 01:25 Bed 19 Private MD: ED Physician Everett Wills HPI: 12/19 06:23 This 24 yrs old Female presents to ER via Ambulatory with complaints of Sore tw4 Throat, Ear Pain. 06:23 The patient presents with sore throat. The patient describes throat pain as constant, tw4 scratchy. Onset: The symptoms/episode began/occurred yesterday. Severity of symptoms: At their worst the symptoms were moderate, in the emergency department the symptoms are unchanged. Modifying factors: The symptoms are alleviated by nothing, the symptoms are aggravated by swallowing. Associated signs and symptoms: The patient has no apparent associated signs or symptoms. The patient has experienced a previous episode. The patient has been recently seen at the [facility] Emergency Department. 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 - Social history:: Smoking status: Patient denies any tobacco usage or history of. Patient/guardian denies using alcohol, street drugs, IV drugs. ROS: 06:23 Constitutional: Negative for fever, chills, and weight loss, Eyes: Negative for injury, tw4 pain, redness, and discharge. 06:23 Respiratory: Negative for shortness of breath, cough, wheezing, and pleuritic chest pain, Abdomen/GI: Negative for abdominal pain, nausea, vomiting, diarrhea, and constipation, Back: Negative for injury and pain. 06:23 ENT: Positive for sore throat, Negative for injury or acute deformity, drainage from ear(s), ear pain, foreign body sensation, Gum pain pulling at ears, Teeth pain Exam: 06:23 Constitutional: This is a well developed, well nourished patient who is awake, alert, tw4 and in no acute distress. Head/Face: Normocephalic, atraumatic. 06:23 Chest/axilla: Normal chest wall appearance and motion. Nontender with no deformity. No lesions are appreciated. Cardiovascular: Regular rate and rhythm with a normal S1 and S2. No gallops, murmurs, or rubs. Normal PMI, no JVD. No pulse deficits. Respiratory: Lungs have equal breath sounds bilaterally, clear to auscultation and percussion. No rales, rhonchi or wheezes noted. No increased work of breathing, no retractions or nasal flaring. Abdomen/GI: Soft, non-tender, with normal bowel sounds. No distension or tympany. No guarding or rebound. No evidence of tenderness throughout. 06:23 ENT: External ear(s): are unremarkable, Posterior pharynx: erythema, that is mild. Vital Signs: 01:35 BP 133 / 92; Pulse 95; Resp 18; Temp 98.4(O); Pulse Ox 96% on R/A; Weight 83.91 kg; ao Height 5 ft. 3 in. (160.02 cm) (R); Pain 0/10; 01:35 Body Mass Index 32.77 (83.91 kg, 160.02 cm) ao MDM: 01:52 Patient medically screened. tw4 06:23 Differential diagnosis: pharyngitis. Data reviewed: vital signs, nurses notes. tw4 Counseling: I had a detailed discussion with the patient and/or guardian regarding: the historical points, exam findings, and any diagnostic results supporting the discharge/admit diagnosis. Medication response: Toradol markedly relieved the patient's pain. Response to treatment: the patient's symptoms have markedly improved after treatment, and as a result, I will discharge patient. Special discussion: I discussed with the patient/guardian in detail that at this point there is no indication for admission to the hospital. It is understood, however, that if the symptoms persist or worsen the patient needs to return immediately for re-evaluation. Administered Medications: 01:54 Drug: SOLU-Medrol 125 mg Route: IM; Site: right gluteus; ao 02:40 Follow up: Response: No adverse reaction ao 01:55 Drug: TORadol 30 mg Route: IM; Site: right gluteus; ao 02:40 Follow up: Response: No adverse reaction ao Disposition: 06:28 Chart complete. tw4 Disposition: 12/20/19 02:21 Discharged to Home. Impression: Acute pharyngitis, unspecified. - Condition is Stable. - Discharge Instructions: Pharyngitis, Sore Throat. - Prescriptions for Ibuprofen 800 mg Oral Tablet - take 1 tablet by ORAL route every 8 hours As needed take with food; 30 tablet. Medrol (Jd) 4 mg Oral Tablets, Dose Pack - take 1 tablet by ORAL route as directed - follow package instructions; 1 packet. acetaminophen- codeine 120-12 mg/5 mL Oral Suspension - take 5 milliliters by ORAL route every 6 hours As needed; 50 milliliter. - Family Work Release, Medication Reconciliation Form, Thank You Letter, Antibiotic Education, Prescription Opioid Use form. - Follow up: Private Physician; When: Upon discharge from the Emergency Department; Reason: Recheck today's complaints, Continuance of care, Re-evaluation by your physician. - Problem is an ongoing problem. - Symptoms have worsened. Signatures: Delano Barroso RN RN ao Wadley, Terrence, MD MD tw4 Corrections: (The following items were deleted from the chart) 02:40 02:21 12/20/2019 02:21 Discharged to Home. Impression: Acute pharyngitis, unspecified. ao Condition is Stable. Forms are Medication Reconciliation Form, Thank You Letter, Antibiotic Education, Prescription Opioid Use. Follow up: Private Physician; When: Upon discharge from the Emergency Department; Reason: Recheck today's complaints, Continuance of care, Re-evaluation by your physician. Problem is an ongoing problem. Symptoms have worsened. tw4
== END 2019-12-20 02:40 | disposition home or self-care (01) ==
LOC: ER 01:23
DX: J02.9 Acute pharyngitis, unspecified (principal)
CPT/HCPCS: 96372; 99283; J2930

== ENCOUNTER 2021-03-24 16:48 | Emergency (ER) | payer SELFPAY ==
[2021-03-24 17:40] LABS: Urine Blood 2+ (Negative); Urine Glucose Negative (Negative); Urine Protein Negative (Negative); Urine Specific Gravity >=1.030 (1.005-1.030)
[2021-03-24] MEDS ORDERED: ONDANSETRON 4 MG/2 ML VIAL ONE (18:37)
[2021-03-24] MEDS ORDERED: MORPHINE 4 MG/ML SYR ONE (18:37)
[2021-03-24 18:57] LABS: Absolute Lymphocytes (CBC) 1.9 K/uL (0.7-4.9); Basophils % 0.4 % (0-1.3); Hematocrit 38.1 % (36.0-45.0); MPV 8.9 fL (7.6-11.3); RBC Red Blood Cell Count 4.28 M/uL (3.86-4.86)
--- NOTE | 2021-03-24 19:09 | RAD REPORT ---
EXAM DESCRIPTION: US - Transvaginal Study Probe - 03/24/2021 7:00 pm CLINICAL HISTORY: ABD PAIN Pelvic pain. COMPARISON: Transvaginal Study Probe dated 11/09/2018 FINDINGS: The uterus is normal in size, shape and echotexture. The uterus measures 8.1 x 3.3 cm. The endometrial stripe measures 10 mm, normal. Both ovaries are normal in size, shape and echotexture No ovarian or parovarian lesions. No adnexal m asses. Normal Doppler blood flow was demonstrated to both ovaries. No significant pelvic ascites. IMPRESSION: Unremarkable study.
[2021-03-24 19:10] LABS: BUN Blood Urea Nitrogen 13 mg/dL (7-18); Bicarbonate 25 mmol/L (21-32); Glucose Level 102 mg/dL (74-106); Potassium 3.5 mmol/L (3.5-5.1); Sodium Level 143 mmol/L (136-145)
--- NOTE | 2021-03-24 19:20 | RAD REPORT ---
EXAM DESCRIPTION: CTAbdomen Pelvis W Contrast - 03/24/2021 7:08 pm CLINICAL HISTORY: Abdominal pain. ABD PAIN COMPARISON: Abdomen Pelvis W Contrast dated 11/09/2018 TECHNIQUE: Biphasic CT imaging of the abdomen and pelvis was performed with 100 ml non-ionic IV cont rast. All CT scans are performed using dose optimization technique as appropriate and may include automated exposure control or mA/KV adjustment according to patient size. FINDINGS: The lung bases are clear. Cholecystectomy clips. The liver, spleen, pancreas, adrenal glands and kidneys are within normal limits. No bowel obstruction, free air, free fluid or abscess. The appendix is normal. No evidence of signi ficant lymphadenopathy. No suspicious bony findings. IMPRESSION: No acute intra-abdominal or pelvic finding.
--- NOTE | 2021-03-24 19:31 | EDPHYS ---
Physician Documentation [facility] Name: Mary Aaron Age: 25 yrs Sex: Female : 1995 Arrival Date: 03/24/2021 Time: 16:49 Bed Ultrasound Private MD: ED Physician Hardy Iyer HPI: 03/24 19:36 This 25 yrs old Female presents to ER via Ambulatory with complaints of kb Abdominal Pain, Pelvic Pain. 19:36 The patient presents with abdominal pain right lower quadrant. Onset: The kb symptoms/episode began/occurred yesterday. The symptoms do not radiate. Associated signs and symptoms: none. The symptoms are described as sharp. Modifying factors: The symptoms are alleviated by nothing, the symptoms are aggravated by nothing. Severity of pain: At its worst the pain was moderate in the emergency department the pain is unchanged. The patient has experienced similar episodes in the past, multiple times. The patient has not recently seen a physician. Pt reports right lower quadrant pain that started yesterday. States she gets this when she has her periods sometimes, but this time is much worse. Historical: - Allergies: 17:13 No Known Allergies; ll1 - PMHx: 17:13 Cholelithiasis; ectopic ; ll1 - PSHx: 17:13 Cholecystectomy; hand SX; fallopian tube removal; ll1 - Immunization history:: Client reports having NOT received the Covid vaccine. Flu vaccine is not up to date. - Social history:: Smoking status: Patient denies any tobacco usage or history of. ROS: 19:33 Constitutional: Negative for fever, chills, and weight loss. kb 19:33 Abdomen/GI: Positive for abdominal pain, Negative for nausea, vomiting, and diarrhea. 19:33 All other systems are negative. Exam: 19:33 Constitutional: This is a well developed, well nourished patient who is awake, alert, kb and in no acute distress. Head/Face: Normocephalic, atraumatic. ENT: Moist Mucous membranes Cardiovascular: Regular rate and rhythm with a normal S1 and S2. No gallops, murmurs, or rubs. No pulse deficits. Respiratory: Respirations even and unlabored. No increased work of breathing, no retractions or nasal flaring. Skin: Warm, dry with normal turgor. Normal color. MS/ Extremity: Pulses equal, no cyanosis. Neurovascular intact. Full, normal range of motion. Neuro: Awake and alert, GCS 15, oriented to person, place, time, and situation. Moves all extremities. Normal gait. Psych: Awake, alert, with orientation to person, place and time. Behavior, mood, and affect are within normal limits. 19:33 Abdomen/GI: Inspection: abdomen appears normal, Bowel sounds: normal, in all quadrants, Palpation: soft, in all quadrants, mild abdominal tenderness, in the right upper quadrant, moderate abdominal tenderness, in the right lower quadrant. Vital Signs: 17:13 BP 126 / 89; Pulse 89; Resp 16; Temp 98.4; Pulse Ox 97% ; Weight 74.39 kg; Height 5 ft. ll1 3 in. (160.02 cm); Pain 8/10; 18:30 BP 107 / 71; Pulse 60; Resp 16; Pulse Ox 97% ; rb3 20:15 BP 108 / 76; Pulse 68; Resp 18; Pulse Ox 97% ; ea 17:13 Body Mass Index 29.05 (74.39 kg, 160.02 cm) ll1 MDM: 17:20 Patient medically screened. kb 19:30 Data reviewed: vital signs, nurses notes. Data interpreted: Pulse oximetry: on room air kb is 97 %. Interpretation: normal. Counseling: I had a detailed discussion with the patient and/or guardian regarding: the historical points, exam findings, and any diagnostic results supporting the discharge/admit diagnosis, lab results, radiology results, the need for outpatient follow up, an OB/Gyne specialist, to return to the emergency department if symptoms worsen or persist or if there are any questions or concerns that arise at home. ED course: Pain improved after treatment. 03/24 17:40 Order name: Urine Dipstick-Ancillary; Complete Time: 17:41 EDMS 03/24 17:45 Order name: Urine --Ancillary (enter results); Complete Time: 18:07 eb 03/24 17:48 Order name: CT Abd/Pelvis - IV Contrast Only; Complete Time: 19:22 kb 03/24 17:48 Order name: Basic Metabolic Panel; Complete Time: 19:12 kb 03/24 17:48 Order name: CBC with Diff; Complete Time: 19:02 kb 03/24 17:48 Order name: US Transvaginal Study (Probe); Complete Time: 19:12 kb 03/24 17:27 Order name: Urine Dipstick-Ancillary (obtain specimen); Complete Time: 17:32 kb 03/24 17:27 Order name: Urine Test (obtain specimen); Complete Time: 17:32 kb 03/24 17:48 Order name: IV Saline Lock; Complete Time: 18:35 kb 03/24 17:48 Order name: Labs collected and sent; Complete Time: 18:35 kb Administered Medications: 18:30 Drug: Zofran (Ondansetron) 4 mg Route: IVP; Site: left antecubital; rb3 19:18 Follow up: Response: No adverse reaction ea 18:30 Drug: morphine 4 mg Route: IVP; Site: left antecubital; rb3 19:18 Follow up: Response: No adverse reaction ea 19:18 Drug: TORadol - (ketorolac) 15 mg Route: IVP; Site: left antecubital; ea Disposition: 03/24/21 19:30 Discharged to Home. Impression: Abdominal and pelvic pain. - Condition is Stable. - Discharge Instructions: Pelvic Pain, Female, [id number], Abdominal Pain, Adult, [id number]. - Prescriptions for Diclofenac Sodium 75 mg Oral Tablet, Delayed Release (E.C.) - take 1 tablet by ORAL route 2 times per day As needed; 30 tablet. - Medication Reconciliation Form, Thank You Letter, Antibiotic Education, Prescription Opioid Use form. - Follow up: Emergency Department; When: As needed; Reason: Worsening of condition. Follow up: Private Physician; When: 2 - 3 days; Reason: Recheck today's complaints, Continuance of care, Re-evaluation by your physician. Addendum: 03/26/2021 19:26 Co-signature as Attending Physician, Hardy Iyer MD. r n Signatures: Dispatcher [employer] EDWV Little Alvarez, MANAGER MARKETING-C MANAGER MARKETING-CkHardy Aviles MD MD rn Antunez, Elena RN Merlene Martínez ea RN RN ll1 Marley Mclain, RN RN rb3 Corrections: (The following items were deleted from the chart) 03/24 20:28 19:30 03/24/2021 19:30 Discharged to Home. Impression: Abdominal and pelvic pain. ea Condition is Stable. Forms are Medication Reconciliation Form, Thank You Letter, Antibiotic Education, Prescription Opioid Use. Follow up: Emergency Department; When: As needed; Reason: Worsening of condition. Follow up: Private Physician; When: 2 - 3 days; Reason: Recheck today's complaints, Continuance of care, Re-evaluation by your physician. kb
--- NOTE | 2021-03-24 19:31 | ER ---
Nurse's Notes [facility] Name: Mary Aaron Age: 25 yrs Sex: Female : 1995 Arrival Date: 03/24/2021 Time: 16:49 Bed Ultrasound Private MD: Diagnosis: Abdominal and pelvic pain Presentation: 03/24 17:13 Chief complaint: Patient states: R pelvic pain for 1 day, more severe than usual. ll1 Nausea for 3-4 days. no fever. Coronavirus screen: Client denies travel out of the [place] in the last 14 days. At this time, the client does not indicate any symptoms associated with coronavirus-19. Ebola Screen: Patient denies travel to an Ebola-affected area in the 21 days before illness onset. Initial Sepsis Screen: Does the patient meet any 2 criteria? No. Patient's initial sepsis screen is negative. Does the patient have a suspected source of infection? Yes: Acute abdominal pain. Risk Assessment: Do you want to hurt yourself or someone else? Patient reports no desire to harm self or others. Onset of symptoms was March 24, 2021. 17:13 Method Of Arrival: Ambulatory ll1 17:13 Acuity: KAMALA 3 ll1 Triage Assessment: 17:15 General: Appears in no apparent distress. uncomfortable, Behavior is cooperative, bp appropriate for age, anxious. Pain: Complains of pain in pelvis. EENT: No deficits noted. Neuro: No deficits noted. Cardiovascular: No deficits noted. Respiratory: No deficits noted. GI: Reports lower abdominal pain. : Reports pain in suprapubic area. Derm: No deficits noted. Musculoskeletal: No deficits noted. Historical: - Allergies: 17:13 No Known Allergies; ll1 - PMHx: 17:13 Cholelithiasis; ectopic ; ll1 - PSHx: 17:13 Cholecystectomy; hand SX; fallopian tube removal; ll1 - Immunization history:: Client reports having NOT received the Covid vaccine. Flu vaccine is not up to date. - Social history:: Smoking status: Patient denies any tobacco usage or history of. Screenin:30 Abuse screen: Denies threats or abuse. Denies injuries from another. Nutritional bp screening: No deficits noted. Tuberculosis screening: No symptoms or risk factors identified. Fall Risk None identified. Assessment: 17:30 General: SEE TRIAGE NOTE. bp 18:30 Reassessment: Patient appears in no apparent distress at this time. Patient and/or rb3 family updated on plan of care and expected duration. Pain level reassessed. Patient is alert, oriented x 3, equal unlabored respirations, skin warm/dry/pink. 19:18 General: Appears uncomfortable. Neuro: Level of Consciousness is awake, alert, obeys ea commands, Oriented to person, place, time. Cardiovascular: Patient's skin is warm and dry. Respiratory: Airway is patent Respiratory effort is even, unlabored, Respiratory pattern is regular, symmetrical. Derm: Skin is pink, warm \T\ dry. 20:26 Reassessment: Patient and/or family updated on plan of care and expected duration. Pain ea level reassessed. Patient is alert, oriented x 3, equal unlabored respirations, skin warm/dry/pink. Discharge instruction given to patient verbalized the understanding of instruction. Vital Signs: 17:13 BP 126 / 89; Pulse 89; Resp 16; Temp 98.4; Pulse Ox 97% ; Weight 74.39 kg; Height 5 ft. ll1 3 in. (160.02 cm); Pain 8/10; 18:30 BP 107 / 71; Pulse 60; Resp 16; Pulse Ox 97% ; rb3 20:15 BP 108 / 76; Pulse 68; Resp 18; Pulse Ox 97% ; ea 17:13 Body Mass Index 29.05 (74.39 kg, 160.02 cm) ll1 ED Course: 16:49 Patient arrived in ED. as 17:06 Little Alvarez FNP-C [facility] kb 17:06 Hardy Iyer MD is Attending Physician. kb 17:11 Arm band placed on Patient placed in an exam room, on a stretcher. ll1 17:14 Triage completed. ll1 17:28 Elijah Peters, QIAN is Primary Nurse. bp 17:30 Patient has correct armband on for positive identification. Bed in low position. Call bp light in reach. Side rails up X2. 17:40 Urine collected: clean catch specimen, cloudy. mh5 18:30 Inserted saline lock: 20 gauge in left antecubital area, using aseptic technique. Blood rb3 collected. 19:00 US Transvaginal Study (Probe) In Process Unspecified. EDMS 19:08 CT Abd/Pelvis - IV Contrast Only In Process Unspecified. EDMS 19:21 Primary Nurse role handed off by Elijah Peters, QIAN eb 20:27 No provider procedures requiring assistance completed. IV discontinued, intact, ea bleeding controlled, No redness/swelling at site. Pressure dressing applied. Administered Medications: 18:30 Drug: Zofran (Ondansetron) 4 mg Route: IVP; Site: left antecubital; rb3 19:18 Follow up: Response: No adverse reaction ea 18:30 Drug: morphine 4 mg Route: IVP; Site: left antecubital; rb3 19:18 Follow up: Response: No adverse reaction ea 19:18 Drug: TORadol - (ketorolac) 15 mg Route: IVP; Site: left antecubital; ea Outcome: 19:30 Discharge ordered by MD. kb 20:27 Discharged to home ambulatory, with family. ea 20:27 Condition: stable 20:27 Discharge instructions given to patient, Instructed on discharge instructions, follow up and referral plans. medication usage, Demonstrated understanding of instructions, follow-up care, medications, Prescriptions given X 1. 20:28 Patient left the ED. ea Signatures: Dispatcher [employer] EDMS Little Alvarez, SALAD CHEF-C SALAD CHEF-Ckb Merline Tilley Maria [facility] Geri Guadalupe, RN RN Elijah Snell, RN RN Rita Deleon Lynsay, RN RN ll1 Marley Mclain, RN RN rb3
[2021-03-24] MEDS ORDERED: KETOROLAC 30 MG/ML INJ ONE (19:36)
[2021-03-24 20:36] VITALS: TEMP 98.4; O2SAT 97
[2021-03-24 20:39] VITALS: BP 108/76
== END 2021-03-24 20:28 | disposition home or self-care (01) ==
LOC: ER 16:48
DX: R10.2 Pelvic and perineal pain (principal)
CPT/HCPCS: 36415; 74177; 76830; 80048; 81003; 81025; 82565; 85025; 96374; 96375; 99284; J2405; Q9967